=== PATIENT | female | born 1985 | race Caucasian/White ===

== ENCOUNTER 2018-11-07 21:53 | Emergency (ER) | payer OTHER ==
[~2018-11-07] VITALS: Ht 160 cm; Wt 90.7 kg
[~2018-11-07 21:53] MED LIST: APAP500; BACTRIM DS TAB1 EACH PO; CLEOCIN HCL150 MG PO; CLEOCIN HCL300 MG PO; DARVOCET N PO; DARVOCET-N 1001 EACH PO; FLEXERIL PO; IBUPROFEN 400400 M1 PO; IBUPROFEN 600600 M1 PO; IBUPROFEN 800800 M1 PO; IBUPROFEN 800800 MG PO; LEXAPRO 10 MG T10 MG PO; LEXAPRO20 MG; LEXAPRO20 MG PO; LOESTRIN 24 FE1 EACH PO; LORTAB 5 MG/5001 TA1 PO; MOBIC15 MG PO; NAPROXEN 500MG500 M1 PO; NEURONTIN 300300 M1; NEURONTIN 300300 M1 PO; NORCO 5-325 TA1 EACH PO; PHENERGAN 25 MG25 M1 PO; PREDNISONE 20 M20 MG PO; PRENATAL; XANAX 0.5 MG0.5 M1 PO; ZPAK PO
[2018-11-07 23:15] LABS: ABSOLUTE NEUTROPHILS 6.2 thou/uL (1.4-8.2); BASOPHILS 0.5 % (0.0-2.0); HEMATOCRIT 34.8 % (37.0-47.0); HEMOGLOBIN 11.7 gm/dL (12.0-15.0); LYMPHOCYTES 31.2 % (24.0-44.0); MCH 30.9 pg (26.0-34.0); MCHC 33.6 g/dL (28.0-37.0); MCV 91.7 fL (80.0-100.0); MONOCYTES 8.4 % (1.0-8.0); PLATELET COUNT 157 thou/uL (150-400); POLYS 56.9 % (36.0-66.0); RDW 14.3 % (10.5-14.5); WBC 10.9 thou/uL (4.0-11.0)
[2018-11-07 23:28] LABS: CALCIUM 8.6 mg/dL (8.5-10.1); POTASSIUM 3.8 mmol/L (3.5-5.1)
[2018-11-07] MEDS ORDERED: TESSALON PERLE100 MG PO (23:51)
[2018-11-07] MEDS ORDERED: PREDNISONE 20 M20 MG PO (23:51)
[2018-11-07] MEDS ORDERED: VENTOLIN HFA 1818 GM INH (23:51)
[2018-11-08 00:10] VITALS: BP 100/54
== END 2018-11-08 00:11 | disposition home or self-care (01) ==
LOC: ER 21:53
PROVIDERS: Emergency Medicine
DX: B34.9 Viral infection, unspecified (principal); F17.210 Nicotine dependence, cigarettes, uncomplicated; Z88.0 Allergy status to penicillin; Z88.5 Allergy status to narcotic agent; Z91.040 Latex allergy status; Z88.8 Allergy status to other drugs, medicaments and biological substances